=== PATIENT | female | born 1960 | race Caucasian/White ===

== ENCOUNTER 2018-12-23 16:39 | Emergency (ER) | payer OTHER ==
[~2018-12-23 16:39] MED LIST: Iopamidol 370 76% 100 ML VIAL ONE
[2018-12-23] MEDS ORDERED: Sodium Chloride 0.9% 500 ML ONE (16:53)
[2018-12-23] MEDS ORDERED: methylPREDNISolone Sod Succ/PF 125 MG/2 ML VIAL ONE (16:53)
[2018-12-23 17:23] LABS: #Lymphocytes 0.7 thou/uL (1.20-3.40); #Monocytes 0.5 thou/uL (0.11-0.59); #Neutrophils 10.1 thou/uL (1.40-6.50); %Basophils 0.3 % (0.0-1.0); %Monocytes 4.5 % (0.0-10.0); %Neutrophils 89.2 % (42.0-75.0); Mean Corpuscular HGB CONC 32.2 g/dL (32.0-36.0); Mean Corpuscular Hemoglobin 25.6 pg (27.0-31.0); Mean Corpuscular Volume 79.5 fL (78.0-98.0); Mean Platelet Volume 7.3 fL (7.4-10.4); Platelet Count 210 thou/uL (130-400); RBC Distribution Width 15.7 % (11.5-14.5); Red Blood Cell (RBC) Count 3.91 mill/uL (4.20-5.40); White Blood Cell (WBC) Count 11.3 thou/uL (4.8-10.8)
[2018-12-23 17:39] LABS: ALT (SGPT) 17 U/L (8-55); AST (SGOT) 32 U/L (5-34); Albumin 3.7 g/dL (3.5-5.0); Alkaline Phosphatase 110 U/L (40-150); Anion Gap 17 mmol/L (10-20); BUN (Urea Nitrogen) 21 mg/dL (9.8-20.1); Bilirubin, Total 0.4 mg/dL (0.2-1.2); Calc. Creatinine Clearance 0 mL/min (70-130); Calcium 8.8 mg/dL (7.8-10.44); Carbon Dioxide 23 mmol/L (22-29); Chloride 86 mmol/L (98-107); Estimated GFR-MDRD 42; Globulin 3.2 g/dL (2.4-3.5); Glucose 89 mg/dL (70-105); Potassium 3.9 mmol/L (3.5-5.1); Protein, Total 6.9 g/dL (6.0-8.3); Sodium 122 mmol/L (136-145)
[2018-12-23] MEDS ORDERED: cefTRIAXone\\ROCEPHIN 1 GM VIAL ONE (18:58)
[2018-12-23] MEDS ORDERED: Acetaminophen 500 MG TAB ONE (19:17)
--- NOTE | 2018-12-23 19:36 | CT ---
CT ANGIOGRAM OF THE CHEST 12/23/18 HISTORY: Partial right pneumonectomy. Smoking. Coronary artery disease. Stent. Hypertension. Dyspnea. COMPARISON: None. TECHNIQUE: CT angiogram of the chest is performed in the axial plane. Three dimensional reformatted images are s ubmitted for interpretation. FINDINGS: Limited evaluation due to motion degradation. There do appear to be enlarged right hilar lymph nodes. This conglomeration of lymph nodes measures 3 .5 x 1.5 cm. Heart size is normal. No significant pericardial fluid. The visualized aorta is unremark able. The visualized upper solid organs are also unremarkable. Findings compatible with a right lobectomy. There is resultant elevation of the right hemidiaphragm. There are patchy ground glass opacities in the left and right upper lung. More focal consolidation wi th air bronchograms is noted in the right lower lung. No suspicious masses or consolidation are appre ciated. There is no pneumothorax . Evaluation of the lung parenchyma is limited due to motion degrada tion. There is no lytic or blastic lesions within the osseous structures. Adequate contrast opacification of the pulmonary arterial system to the level of the proximal lobar a rteries. The remainder of the lobar artery, segmental and subsegmental arteries could not be adequate ly assessed. No filling defect to suggest thromboembolism. IMPRESSION: 1. Suboptimal evaluation of the lung parenchymal and pulmonary artery due to motion degradation as well as timing of contrast bolus. No obvious central PE is appreciated. 2. Lung parenchymal opacification as described above. 3. Enlarged right hilar nodes. POS: [facility]
--- NOTE | 2018-12-23 19:48 | RAD ---
CHEST ONE VIEW: 12/23/18 COMPARISON: 06/13/14, 04/12/13. FINDINGS: Enlarged cardiac silhouette. There is elevation of the left hemidiaphragm. Lung parenchymal changes a re noted. Refer to CT angiogram of the chest performed prior to this radiograph for further detail. IMPRESSION: Lung parenchymal changes. POS: [facility]
== END 2018-12-23 20:28 | disposition short-term general hospital (02) ==
LOC: NAV ERS 16:39
DX: J18.9 Pneumonia, unspecified organism (principal); E87.1 Hypo-osmolality and hyponatremia; K58.9 Irritable bowel syndrome, unspecified; I25.2 Old myocardial infarction; I10 Essential (primary) hypertension; F41.9 Anxiety disorder, unspecified; F17.210 Nicotine dependence, cigarettes, uncomplicated; Z79.899 Other long term (current) drug therapy
CPT/HCPCS: 36415; 71045; 71275; 80053; 83605; 83880; 84484; 85025; 85379; 87040; 87804; 93005; 94760; 96361; 96374; 96375; J0696; J2930; J7050; J7620; Q9967